=== PATIENT | female | born 1965 | race Native Hawaiian/Other Pacific Islander ===

== ENCOUNTER 2018-04-12 08:31 | Day surgery (SDC) | payer BC ==
[~2018-04-12] VITALS: Ht 30.5 cm; Wt 0.5 kg
[2018-04-12 09:07] LABS: PLATELET COUNT 205 K/uL (152-353)
== END 2018-04-12 18:30 | disposition home or self-care (01) ==
LOC: OR 08:31
PROVIDERS: Student in an Organized Health Care Education/Training Program
PROC: 0YU60JZ Supplement Left Inguinal Region with Synthetic Substitute, Open Approach (ICD-10-PCS; principal; 2018-04-12)
DX: K40.90 Unilateral inguinal hernia, without obstruction or gangrene, not specified as recurrent (principal); N94.89 Other specified conditions associated with female genital organs and menstrual cycle
CPT/HCPCS: 80053; 85027; C1729; C1781; J0132; J0330; J0690; J1100; J1170; J2001; J2250; J2405; J2704; J3010; J3490